=== PATIENT | female | born 1960 | race Two or more races ===

== ENCOUNTER 2019-08-07 09:01 | Outpatient (CLI) | payer OTHER | END 2019-08-07 09:05 | disposition home or self-care (01) | LOC: SONOGRAMA 09:01 | DX: E04.1 Nontoxic single thyroid nodule (principal) ==

== ENCOUNTER 2023-07-16 11:07 | Outpatient (CLI) | payer OTHER | END 2023-07-16 11:08 | disposition home or self-care (01) | LOC: NUCLEAR 11:07 | PROVIDERS: ATTEND Internal Medicine Sports Medicine | DX: C73 Malignant neoplasm of thyroid gland (principal); E89.0 Postprocedural hypothyroidism ==